=== PATIENT | female | born 1995 | race Asian ===

== ENCOUNTER 2017-02-27 02:15 | Emergency (ER) | payer OTHER ==
[~2017-02-27] VITALS: Ht 175.3 cm; Wt 69.3 kg
[2017-02-27 02:26] VITALS: TEMP 36.9; O2SAT 99; Ht 175.3 cm; Wt 69.3 kg
--- NOTE | 2017-02-27 02:37 | EMERGENCY ROOM VISIT NOTE ---
History Report prepared by Phill: Santos Bullock Under the Supervision of: Dr. Trace Christianson D.O. First contact with patient: :17 Stated Complaint: ALCOHOL OVERDOSE History of Present Illness The patient is a 22 year old female who presents to the Emergency Room with complaints of alcohol intoxication. This history is limited secondary to the patient's intoxication. Per EMS, the patient was found unconscious outside of the Graduate in [facility]. She could not stand up for herself. In the ambulance, she began to talk with EMS. Per the patient's friend, she had about 14 drinks this evening. It is her 22st birthday. Source of History: patient, EMS History Limited By: intoxication Onset: [employer]OL [employer]ER Position: other (Global) Symptom Intensity: moderate Quality: other (ETOH) Timing: constant Associated Symptoms: No vomiting Review of Systems ROS unable to obtain secondary to the patient's intoxication. Past Medical & Surgical Unable to obtain secondary to the patient's intoxication Family History Unable to obtain secondary to the patient's intoxication. Social History Alcohol Use: occasionally Occupation Status: [employer] student Unable to fill out in full secondary to the patient's intoxication. Current/Historical Medications Scheduled [Acne Med], Unknown Dose PO DAILY Allergies Coded Allergies: Shellfish (Verified Allergy, Mild, RASH, 02/27/17) Physical Exam Vital Signs Date Time Temp Pulse Resp B/P (MAP) Pulse Ox O2 Delivery O2 Flow Rate FiO2 02/27/17 02:59 96/67 99 02/27/17 02:55 78 02/27/17 02:50 87 19 99 02/27/17 02:45 81 19 94 02/27/17 02:40 89 21 02/27/17 02:35 96 26 94 02/27/17 02:32 114 02/27/17 02:30 86 16 98 02/27/17 02:26 36.9 80 18 118/86 99 Room Air 02/27/17 02:26 99 Room Air 02/27/17 02:26 99 Room Air Physical Exam GENERAL: Awake, alert, intoxicated-appearing female, in no distress, no signs of trauma. HENT: Normocephalic, atraumatic. Oropharynx unremarkable. EYES: Normal conjunctiva. Sclera non-icteric. NECK: Supple. No nuchal rigidity. FROM. No JVD. RESPIRATORY: Clear to auscultation. CARDIAC: Regular rate, normal rhythm. Extremities warm and well perfused. Pulses equal. ABDOMEN: Soft, non-distended. No tenderness to palpation. No rebound or guarding. No masses. RECTAL: Deferred. MUSCULOSKELETAL: Chest examination reveals no tenderness. The back is symmetrical on inspection without obvious abnormality. There is no CVA tenderness to palpation. No joint edema. LOWER EXTREMITIES: Calves are equal size bilaterally and non-tender. No edema. No discoloration. NEURO: Normal sensorium. No sensory or motor deficits noted. SKIN: No rash or jaundice noted. Medical Decision & Procedures Laboratory Results 02/27/17 02:32 Test 02/27/17 02:32 Anion Gap 8.0 mmol/L (3-11) Est Creatinine Clear Calc Drug Dose 132.9 ml/min Estimated GFR () 143.5 Estimated GFR (Non- 123.9 BUN/Creatinine Ratio 20.7 (10-20) Calcium Level 8.5 mg/dl (8.5-10.1) Ethyl Alcohol mg/dL 254.0 mg/dl (0-3) Laboratory results reviewed by me ED Course 0217: The patient was evaluated in room B11B. A complete history and physical exam was performed. 0700: I reevaluated the patient. Discussed results and discharge instructions: She verbalized understanding and agreement. The patient is ready for discharge. Medical Decision Differential diagnosis: Etiologies such as alcohol intoxication, toxicologic, infection, hypoglycemia, electrolyte abnormalities, cardiac sources, intracerebral event, neurologic, as well as others were entertained. Patient remained stable condition throughout emergency department evaluation. There is no signs of trauma. Patient will remain in the department under observation. Medication Reconcilliation Current Medication List: was personally reviewed by me Blood Pressure Screening Patient's blood pressure: Normal blood pressure Impression Primary Impression: Alcohol intoxication Scribe Attestation The scribe's documentation has been prepared under my direction and personally reviewed by me in its entirety. I confirm that the note above accurately reflects all work, treatment, procedures, and medical decision making performed by me. Departure Information Dispostion Home / Self-Care Forms HOME CARE DOCUMENTATION FORM, IMPORTANT VISIT INFORMATION Patient Instructions ED Alcohol Intoxication, [facility]: [employer] Students and Alcohol Related Visits, [facility]
[2017-02-27] MEDS ORDERED: ACNE MED PO (02:59)
[2017-02-27 03:09] LABS: BUN/CREATININE RATIO 20.7 (10-20); CALCIUM 8.5 mg/dl (8.5-10.1); CREATININE 0.7 mg/dl (0.60-1.20); POTASSIUM 3.3 mmol/L (3.5-5.1)
[2017-02-27 09:45] VITALS: BP 116/56; PULSE 97; O2SAT 98
== END 2017-02-27 09:57 | disposition home or self-care (01) ==
LOC: EDBD 02:15 → C.EDB 02:16
DX: F10.129 Alcohol abuse with intoxication, unspecified (principal); Y90.8 Blood alcohol level of 240 mg/100 ml or more